=== PATIENT | male | born 1980 | race African-American/Black ===

== ENCOUNTER → 2017-02-08 | Outpatient (CLI) | payer BC ==
[~2017-02-08] MED LIST: AMLO2.5T PO
== END | disposition home or self-care (01) ==
LOC: PNCL 12:40
PROVIDERS: ATTEND Anesthesiology
DX: M51.36 Other intervertebral disc degeneration, lumbar region (principal); M51.26 Other intervertebral disc displacement, lumbar region; M99.83 Other biomechanical lesions of lumbar region
CPT/HCPCS: 99214

== ENCOUNTER → 2017-03-07 | Outpatient (CLI) | payer BC ==
[~2017-03-07] MED LIST changes: +IOHEXOL 180 MG/ML 10 ML VIAL. ONE; +methylPREDNISolone ACETATE 40 MG/ML VIAL. ONE; +methylPREDNISolone ACETATE 80 MG/ML VIAL. ONE
--- NOTE | 2017-03-07 23:13 | PAIN ---
DATE OF SERVICE: 03/07/2017 PROGRESS NOTE FOR PAIN CLINIC DIAGNOSES: Lumbar radiculopathy with lumbar degenerative disk disease. HISTORY OF PRESENT ILLNESS: The patient is a 36-year-old male who returns for followup status post initial evaluation and returns today for lumbar epidural steroid injection. We tried a Medrol Dosepak, which was only helpful for a few days and then the pain came back to its normal level. The patient reports it as a 10 on a scale of 10 at its worst, it is 8 currently. Pain in the low back, right lower extremity as previously, constant, sharp, tingling, sharp tight burning, stabbing, constant as well. The patient reports it does awaken him from sleep frequently. He again reposition, get out bed or change position to get him back to sleep. The patient reports no new motor or sensory deficits, no new bowel or bladder incontinence or other complaints, still significant pain in low back and primarily in the right lower extremity as previously. PHYSICAL EXAMINATION: VITAL SIGNS: Today, the patient's blood pressure 139/84, pulse 74, respirations are 18, temperature 98.1 degrees Fahrenheit, and weight is 218 pounds. GENERAL: The patient is awake, alert, oriented, appropriate, very pleasant demeanor. HEENT: Head is normocephalic, atraumatic. Extraocular movements are intact, symmetrical. Oral cavity: Mucous membranes moist and pink. Dentition is intact. NECK: Shows anterior throat supple without palpable lymphadenopathy noted. Swallow reflex is symmetrical. CHEST: Shows normal on inspection. Breath sounds are clear to auscultation bilaterally. HEART: Shows S1 and S2 clear. ABDOMEN: Soft, nontender, nondistended. BACK: Shows spine grossly in the midline. Lumbar paraspinous muscle shows some mild tenderness, but only diffusely in the lower lumbar distribution, full rotational motion of lumbar spine without difficulty including extension and flexion. LOWER EXTREMITIES: Showed deep tendon reflexes at 2+ in the patellar, 1+ tendo-calcaneus tendons are equal. Motor exam is strong with 5/5 dorsiflexion, extension. Options were discussed with the patient and the patient's old chart was reviewed as his current medication regimen updated. Current review of systems updated today as well. We will proceed with a lumbar epidural steroid injection today with fluoroscopic guidance. Risks were again discussed including, but not limited to bleeding, infection, possibility of epidural hematoma, subsequent neurologic compromise, dural puncture, headaches, spinal cord and/or nerve damage, side effects of steroid medication and poor results regarding pain control. The patient understands and wishes to proceed. The patient will return to clinic in approximately 2 weeks for followup, was counseled on return appointment, activity level, and side effects to be aware of. DIAGNOSES: Lumbar radiculopathy with lumbar degenerative disk disease. PROCEDURES: Lumbar epidural steroid injection in translaminar approach to the L5-S1 level using C-arm fluoroscopic guidance under sterile prep and drape using local anesthetic. MEDICATIONS INJECTED: A total of 120 mg Depo-Medrol plus 10 mL preservative-free normal saline and 2 mL of Isovue for contrast. CONDITION AT DISCHARGE: Stable. The patient tolerated procedure well, had no complications. MARK STEWARD MD DR: LAMIN/autumn JOB#: [id number] / [id number]
== END | disposition home or self-care (01) ==
LOC: PNCL 12:47
PROVIDERS: ATTEND Anesthesiology
DX: M51.16 Intervertebral disc disorders with radiculopathy, lumbar region (principal)
CPT/HCPCS: 62323; J1030; J1040